=== PATIENT | female | born 1980 | race Caucasian/White ===

== ENCOUNTER 2018-01-31 14:08 | Emergency (ER) | payer MEDICAID ==
--- NOTE | 2018-01-31 16:37 | ED Physician Chart ---
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 Pain, A/N/V/D/C, fever, chills, weakness, dizziness , vertigo, or urinary s/s; LNMP: 01/28/18; pt denies ; pt is eating and is urinating well; pt last urinated one hour CUSTOMER ACCOUNT SPECIALIST Allergies:: Allergies Allergy/AdvReac Type Severity Reaction Status Date / Time No Known Allergies Allergy Verified 01/31/18 15:06 Vitals:: Vital Signs - 8 hr 01/31/18 01/31/18 01/31/18 15:10 15:16 15:31 Temp 97 F 98.5 F 98.5 F HR 87 70 70 RR 16 20 19 BP 150/54 115/78 115/78 O2 Sat % 98 96 96 Historian:: Patient, EMS Review:: Nurse's Note Reviewed, Old Chart Reviewed, EMS run form Reviewed ED Review of Systems - Review of Systems General/Constitutional: No fever, No chills, No weight loss, No weakness, No diaphoresis, No edema, No loss of appetite Skin: No skin lesions, No rash, No bruising Head: No headache, No light-headedness Eyes: No loss of vision, No pain, No diplopia ENT: No earache, No nasal drainage, No sore throat, No tinnitus Neck: No neck pain, No swelling, No thyromegaly, No stiffness, No mass noted Cardio Vascular: No chest pain, Palpitations, No PND, No orthopnea, No edema Pulmonary: SOB, No cough, No sputum, No wheezing GI: No nausea, No vomiting, No diarrhea, No pain, No melena, No hematochezia, No constipation, No hematemesis G/U: No dysuria, No frequency, No hematuria, No nacturia Clamp Carrier Operator: No vaginal discharge, No abnormal vaginal bleed, No contraction Musculoskeletal: No bone or joint pain, No back pain, No muscle pain Endocrine: No polyuria, No polydipsia Psychiatric: Prior psych history, Depression, Anxiety, No suicidal ideation, No homicidal ideation, No auditory hallucination, No visual hallucination Hematopoietic: No bruising, No lymphadenopathy Allergic/Immuno: No urticaria, No angioedema Neurological: No syncope, No focal symptoms, No weakness, Paresthesia, No headache, No seizure, No dizziness, No confusion, No vertigo ED Past Medical History - Past Medical History Obtainable: Yes Past Medical History: No significant medical hx Family History: HTN Social History: Non Smoker, No Alcohol, No Drug Use, Single Surgical History: None Psychiatricy History: Depression Medication: Reviewed Family Medical History - Family Member Mother History Unknown: Yes ED Physical Exam - Physical Examination General/Constitutional: Awake, Well-developed, well-nourished, Alert, No distress, GCS 15, Non-toxic appearing, Ambulatory Head: Atraumatic Eyes: Lids, conjuctiva normal, PERRL, EOMI Skin: Nl inspection, No rash, No skin lesions, No ecchymosis, Well hydrated, No lymphadenopathy ENMT: External ears, nose nl, TM canals nl, Nasal exam nl, Lips, teeth, gums nl , Oropharynx nl, Tonsils nl Neck: Nontender, Full ROM w/o pain, No JVD, No nuchal rigidity, No bruit, No mass, No stridor Other Neck comments:: supple; no meningeal signs; no cervical tenderness; no bruits Respiratory: Nl effort/Exclusion, Clear to Auscultation, No Wheeze/Rhonchi/Rales Cardio Vascular: RRR, No murmur, gallop, rubs, NL S1 S2, Carotid/Femoral/Distal pulses equal bilaterally GI: No tenderness/rebounding/guarding, No organomegaly, No hernia, Normal BS's, Nondistended, No mass/bruits, No McBurney tenderness, Rectum exam nl Other GI comments:: no pulsatile masses : No CVA tenderness Extremities: No tenderness or effusion, Full ROM, normal strength in all extremities, No edema, Normal digits & nails Neuro/Psych: Alert/oriented, DTR's symmetric, Normal sensory exam, Normal motor strength, Judgement/insight normal, Mood normal, Normal gait, No focal deficits Other Neuro/Psych comments:: no focal signs; MSE: WNL; no SIs; Mood/Affect: Stable Misc: Normal back, No paraspinal tenderness ED Labs/Radiology/EKG Results - Lab Results Comments:: deferred by pt - EKG Interpretations Comments:: deferred by pt ED Septic Shock - . Is Septic Shock (SBP<90, OR Lactate>4 mmol\L) present?: No - <6hrs of presentation: Vital Signs: Vital Signs - 8 hr 01/31/18 01/31/18 01/31/18 15:10 15:16 15:31 Temp 97 F 98.5 F 98.5 F HR 87 70 70 RR 16 20 19 BP 150/54 115/78 115/78 O2 Sat % 98 96 96 ED Reassessment (Disposition) - Reassessment Reassessment:: pt tolerated po fluids well in ER; pt is asymptomatic upon discharge Reassessment Condition:: Improved - Diagnosis Diagnosis:: Dx: Hyperventilation Syndrome; Palpitations; Dyspnea; Anxiousness; Paresthesias ; Anxiety Reaction; Depression - Aftercare/Follow up Instructions Aftercare/Follow-Up Instructions:: Counseled pt regarding lab results/diagnosis & need follow up, Refer to Discharge Instructions, Counseled pt & family regarding lab results/diagnosis & need follow up - Patient Disposition Discharge/Transfer:: Home Condition at Disposition:: Stable, Improved (RTER prn if existing s/s reoccur and/or get worse and/or any other new s/s occur; ACIs given for all above Dx; Refer to Front Tender/Bread Oven Operator/Psychiatrist/Bag Valver MARIA ISABEL; F/U with PMD Today or prn; RTER prn if concerned)
== END 2018-01-31 15:51 | disposition home or self-care (01) ==
LOC: ER 14:08
DX: F41.1 Generalized anxiety disorder (principal); F32.9 Major depressive disorder, single episode, unspecified; F45.8 Other somatoform disorders; R00.2 Palpitations; R06.00 Dyspnea, unspecified
CPT/HCPCS: Z7502

== ENCOUNTER 2018-02-06 19:02 | Emergency (ER) | payer MEDICAID ==
[2018-02-06 20:06] LABS: % BASOPHILS 2.4 % (0.0-2.0); % EOSINOPHILS 0.9 % (0.0-5.0); % LYMPHOCYTES 24.2 % (20.0-50.0); % MONOCYTES 4.3 % (2.0-10.0); % NEUTROPHILS 68.2 % (40.0-80.0); BASOPHILE ABSOLUTE 0.3 Th/cumm (0-0.2); EOSINOPHILE ABSOLUTE 0.1 Th/cmm (0.1-0.4); HEMATOCRIT 40.3 % (41.0-60); HEMOGLOBIN 13.5 gm/dL (12-16); LYMPHOCYTE ABSOLUTE 2.6 Th/cmm (1.5-3.0); MEAN CELL VOLUME 88.4 fl (81-100); MEAN CORPUSCULAR HEMOGLOBIN 29.7 pg (27.0-31.0); MEAN CORPUSCULAR HGB CONC 33.6 pg (28.0-36.0); MEAN PLATELET VOLUME 8.3 fl; MONOCYTE ABSOLUTE 0.5 Th/cmm (0.3-1.0); NEUTROPHILE ABSOLUTE 7.2 Th/cmm (1.8-8.0); PLATELET COUNT 298 Th/cmm (150-400); RED BLOOD COUNT 4.56 Mil/cmm (3.80-5.10); WHITE BLOOD COUNT 10.7 Th/cmm (4.8-10.8)
[2018-02-06 20:23] LABS: URINE SOURCE RANDOM
[2018-02-06 20:25] LABS: ALB/GLOB RATIO 1.7 (1.0-1.8); ALBUMIN 4.4 gm/dL (3.7-5.3); ALKALINE PHOSPHATASE 55 U/L (34-104); ANION GAP 12.8 (7.0-16.0); BUN - UREA NITROGEN 12 mg/dL (7-25); CALCIUM SERUM 9.4 mg/dL (8.6-10.3); CARBON DIOXIDE 21.8 mEq/L (21.0-31.0); CHLORIDE 104 mEq/L (98-107); CREATININE - SERUM 0.8 mg/dL (0.6-1.2); GFR AFRICAN-AMERICAN > 60.0 ml/min (>90); GFR NON AFRICAN-AMERICAN > 60.0 ml/min; GLUCOSE 88 mg/dL (70-105); POTASSIUM SERUM 3.6 mEq/L (3.5-5.1); SGOT 20 U/L (13-39); SGPT/ALT 19 U/L (7-52); SODIUM SERUM 135 mEq/L (136-145)
[2018-02-06 20:27] LABS: BILIRUBIN,TOTAL 0.1 mg/dL (0.3-1.0)
--- NOTE | 2018-02-06 20:28 | ED Physician Chart ---
ED Chief Complaint/HPI - Patient Information Date Seen:: 02/06/18 Time Seen:: 20:17 Chief Complaint:: Panic attack History of Present Illness:: 37 yo female with history of anxiety, depression and bipolar disorder treated with escitalopram 20mg qhs and lamotrigine 25mg qd for 6 months, had first panic attack 6 days ago and came to [facility]. After symptoms subsided, patient was discharged home. Patient has been going to [facility] for therapy since 6 months ago and she was started on brexpiprazole 1mg qd which has not been helpful. Today, patient had multiple episodes of panic attack at [facility]. She was then discharged home. She then experienced dizziness, nausea, chest pain, hearing noise and palpitation. Patient was taken to ER by ambulance. Patient denied current suicidal ideation or attempt. Allergies:: Allergies Allergy/AdvReac Type Severity Reaction Status Date / Time No Known Allergies Allergy Verified 02/06/18 19:14 Vitals:: Vital Signs - 8 hr 02/06/18 19:05 Temp 98.2 F HR 76 RR 18 BP 135/90 O2 Sat % 100 ED Review of Systems - Review of Systems General/Constitutional: No fever Skin: No skin lesions Head: No headache Eyes: No pain ENT: No nasal drainage Neck: No neck pain Cardio Vascular: Chest pain, Palpitations Pulmonary: No cough GI: Nausea, No vomiting Musculoskeletal: No bone or joint pain Psychiatric: Depression, Anxiety Neurological: No focal symptoms ED Past Medical History - Past Medical History Social History: Non Smoker, No Alcohol, No Drug Use Psychiatricy History: Depression, Bipolar, Other (Anxiety with panic attacks) Family Medical History - Family Member Mother History Unknown: Yes ED Physical Exam - Physical Examination General/Constitutional: Awake, Alert Head: Atraumatic Eyes: PERRL, EOMI Skin: No skin lesions ENMT: Nasal exam nl Neck: No nuchal rigidity Respiratory: Clear to Auscultation, No Wheeze/Rhonchi/Rales Cardio Vascular: RRR, No murmur, gallop, rubs, NL S1 S2 GI: No tenderness/rebounding/guarding Extremities: normal strength in all extremities Neuro/Psych: Alert/oriented ED Labs/Radiology/EKG Results - Lab Results Results: Laboratory Tests 02/06/18 19:59 WBC 10.7 RBC 4.56 Hgb 13.5 Hct 40.3 L MCV 88.4 MCH 29.7 MCHC Differential 33.6 RDW 13.0 Plt Count 298 MPV 8.3 Neutrophils % 68.2 Lymphocytes % 24.2 Monocytes % 4.3 Eosinophils % 0.9 Basophils % 2.4 H Laboratory Last Values WBC 10.7 Th/cmm (4.8-10.8) 02/06/18 19:59 RBC 4.56 Mil/cmm (3.80-5.10) 02/06/18 19:59 Hgb 13.5 gm/dL (12-16) 02/06/18 19:59 Hct 40.3 % (41.0-60) L 02/06/18 19:59 MCV 88.4 fl (81-100) 02/06/18 19:59 MCH 29.7 pg (27.0-31.0) 02/06/18 19:59 MCHC Differential 33.6 pg (28.0-36.0) 02/06/18 19:59 RDW 13.0 % (11.5-20.0) 02/06/18 19:59 Plt Count 298 Th/cmm (150-400) 02/06/18 19:59 MPV 8.3 fl 02/06/18 19:59 Neutrophils % 68.2 % (40.0-80.0) 02/06/18 19:59 Lymphocytes % 24.2 % (20.0-50.0) 02/06/18 19:59 Monocytes % 4.3 % (2.0-10.0) 02/06/18 19:59 Eosinophils % 0.9 % (0.0-5.0) 02/06/18 19:59 Basophils % 2.4 % (0.0-2.0) H 02/06/18 19:59 Sodium 135 mEq/L (136-145) L 02/06/18 19:59 Potassium 3.6 mEq/L (3.5-5.1) 02/06/18 19:59 Chloride 104 mEq/L (98-107) 02/06/18 19:59 Carbon Dioxide 21.8 mEq/L (21.0-31.0) 02/06/18 19:59 Anion Gap 12.8 (7.0-16.0) 02/06/18 19:59 BUN 12 mg/dL (7-25) 02/06/18 19:59 Creatinine 0.8 mg/dL (0.6-1.2) 02/06/18 19:59 Est GFR ( Amer) > 60.0 ml/min (>90) 02/06/18 19:59 Est GFR (Non-Af Amer) > 60.0 ml/min 02/06/18 19:59 BUN/Creatinine Ratio 15.0 02/06/18 19:59 Glucose 88 mg/dL (70-105) 02/06/18 19:59 Calcium 9.4 mg/dL (8.6-10.3) 02/06/18 19:59 Total Bilirubin 0.1 mg/dL (0.3-1.0) L 02/06/18 19:59 AST 20 U/L (13-39) 02/06/18 19:59 ALT 19 U/L (7-52) 02/06/18 19:59 Alkaline Phosphatase 55 U/L (34-104) 02/06/18 19:59 Troponin I < 0.01 ng/mL (0.01-0.05) L 02/06/18 19:59 Total Protein 7.0 gm/dL (6.0-8.3) 02/06/18 19:59 Albumin 4.4 gm/dL (3.7-5.3) 02/06/18 19:59 Globulin 2.6 gm/dL 02/06/18 19:59 Albumin/Globulin Ratio 1.7 (1.0-1.8) 02/06/18 19:59 Urine Source RANDOM 02/06/18 19:35 Urine Color YELLOW 02/06/18 19:35 Urine Clarity CLEAR (CLEAR) 02/06/18 19:35 Urine pH 6.5 (4.6 - 8.0) 02/06/18 19:35 Ur Specific [place] 1.010 (1.005-1.030) 02/06/18 19:35 Urine Protein NEGATIVE mg/dL (NEGATIVE) 02/06/18 19:35 Urine Glucose (UA) NEGATIVE mg/dL (NEGATIVE) 02/06/18 19:35 Urine Ketones TRACE mg/dL (NEGATIVE) 02/06/18 19:35 Urine Blood NEGATIVE (NEGATIVE) 02/06/18 19:35 Urine Nitrate NEGATIVE (NEGATIVE) 02/06/18 19:35 Urine Bilirubin NEGATIVE (NEGATIVE) 02/06/18 19:35 Urine Urobilinogen 0.2 E.U./dL (0.2 - 1.0) 02/06/18 19:35 Ur Leukocyte Esterase SMALL (NEGATIVE) H 02/06/18 19:35 Urine RBC 0-2 /hpf (0-5) 02/06/18 19:35 Urine WBC 2-5 /hpf (0-5) 02/06/18 19:35 Ur Epithelial Cells MODERATE /lpf (FEW) 02/06/18 19:35 Urine Bacteria 1+ /hpf (NONE SEEN) H 02/06/18 19:35 ED Assessment - Assessment General Assessment: Anxiety with panic attacks Urinary tract infection Hyponatremia Mild dehydration Assessment/Comments:: CBC, CMP, UA NS 1L IV bolus Bactrim DS x 1 D/c home Bactrim DS bid x 3 days F/u at [facility] in 1 day, or return to ER if symptoms worsen ED Septic Shock - . Is Septic Shock (SBP<90, OR Lactate>4 mmol\L) present?: No - <6hrs of presentation: Vital Signs: Vital Signs - 8 hr 02/06/18 19:05 Temp 98.2 F HR 76 RR 18 BP 135/90 O2 Sat % 100 ED Reassessment (Disposition) - Reassessment Reassessment Condition:: Improved - Patient Disposition Discharge/Transfer:: Home
[2018-02-06 20:32] LABS: URINE BILIRUBIN NEGATIVE (NEGATIVE); URINE BLOOD NEGATIVE (NEGATIVE); URINE GLUCOSE (UA) NEGATIVE (NEGATIVE); URINE KETONE TRACE mg/dL (NEGATIVE); URINE LEUKOCYTE ESTERASE SMALL (NEGATIVE); URINE NITRATE NEGATIVE (NEGATIVE); URINE PH 6.5 (4.6 - 8.0); URINE PROTEIN NEGATIVE (NEGATIVE); URINE UROBILINOGEN 0.2 E.U./dL (0.2 - 1.0)
[2018-02-06 20:44] LABS: URINE CLARITY CLEAR (CLEAR); URINE COLOR YELLOW; URINE MICROSCOPIC INDICATED? YES
[2018-02-06 20:46] LABS: URINE BACTERIA 1+ /hpf (NONE SEEN); URINE EPITHELIAL CELLS MODERATE /lpf (FEW); URINE RBC 0-2 /hpf (0-5)
[2018-02-06] MEDS ORDERED: Sodium Chloride 0.9% 1,000 ML IV ONE (20:49)
[2018-02-06] MEDS ORDERED: Sulfamethoxazole/TMP 800/160mg Tab PO ONE (20:59)
[2018-02-06] MEDS ORDERED: Sulfamethoxazole/TMP 800/160mg Tab ONE (21:14)
[2018-02-07 12:22] LABS: AMPHETAMINE URINE NEGATIVE (NEGATIVE); BARBITURATES URINE NEGATIVE (NEGATIVE); BENZODIAZEPINES QUAL URINE NEGATIVE (NEGATIVE); CANNABINOID THC NEGATIVE (NEGATIVE); COCAINE METABOLITE QUAL URINE NEGATIVE (NEGATIVE); METHADONE URINE NEGATIVE (NEGATIVE); METHAMPHETAMINES QUAL URINE NEGATIVE (NEGATIVE); OPIATES (MORPHINE) QUAL. URINE NEGATIVE (NEGATIVE); PHENCYCLIDINE (PCP) URINE NEGATIVE (NEGATIVE); TRICYCLICS (TCA) QUAL. URINE NEGATIVE (NEGATIVE)
== END 2018-02-06 22:20 | disposition home or self-care (01) ==
LOC: ER 19:02
DX: F41.0 Panic disorder [episodic paroxysmal anxiety] (principal); N39.0 Urinary tract infection, site not specified; E87.1 Hypo-osmolality and hyponatremia; E86.0 Dehydration; F32.9 Major depressive disorder, single episode, unspecified
CPT/HCPCS: 36415-UA; 80053-TC; 80307; 81001-TC; 84484-TC; 85025-TC; Z7502

== ENCOUNTER 2018-02-11 17:24 | Emergency (ER) | payer MEDICAID ==
--- NOTE | 2018-02-11 17:47 | ED Physician Chart ---
ED Chief Complaint/HPI - Patient Information Date Seen:: 02/11/18 Time Seen:: 17:30 Chief Complaint:: anxiety History of Present Illness:: anxiety in a patient who was here a few days ago and refused an EKG and blood work. I went into the room with nurse Shana. She was on the phone with her brother and ended the phone call with him. She then turned to us and said " What happened?" which I found strange since I had just met her. I said nothing. . .that I came over to interview her and examine her. I asked her if she was still taking Lamotrigine and Lexapro. She answered that she is not taking Lamotrigine any more but that she is on Lexapro. She then said, that she was not going to answer any more of my questions since I had an attitude. Nurse Daphnie went to talk to her after this and the patient stated that she would answer my questions and agree to whatever I thought was indicated for her. 5:37 p.m. All of the following interactions with this patient were with nurse Eller. In fact, the patient apologized to me for the way that she acted. At the end of the visit, the patient thanked me profusely for helping her. Allergies:: Allergies Allergy/AdvReac Type Severity Reaction Status Date / Time No Known Allergies Allergy Verified 02/06/18 19:14 ED Review of Systems - Review of Systems General/Constitutional: No fever, No chills, No weight loss, No weakness, No diaphoresis, No edema, No loss of appetite Skin: No skin lesions, No rash, No bruising Head: No headache, No light-headedness Eyes: No loss of vision, No pain, No diplopia ENT: No earache, No nasal drainage, No sore throat, No tinnitus Neck: No neck pain, No swelling, No thyromegaly, No stiffness, No mass noted Cardio Vascular: Chest pain Pulmonary: No SOB, No cough, No sputum, No wheezing GI: No nausea, No vomiting, No diarrhea, No pain, No melena, No hematochezia, No constipation, No hematemesis G/U: No dysuria, No frequency, No hematuria Musculoskeletal: No bone or joint pain, No back pain, No muscle pain Endocrine: No polyuria, No polydipsia Psychiatric: No prior psych history, No depression, No anxiety, No suicidal ideation Hematopoietic: No bruising, No lymphadenopathy Allergic/Immuno: No urticaria, No angioedema Neurological: No syncope, No focal symptoms, No weakness, No paresthesia, No headache, No seizure, No dizziness, No confusion, No vertigo ED Past Medical History - Past Medical History Obtainable: Yes Past Medical History: No significant medical hx Psychiatricy History: Bipolar, Other (anxiety) Family Medical History - Family Member Mother History Unknown: Yes ED Physical Exam - Physical Examination General/Constitutional: Awake, Well-developed, well-nourished, Alert, GCS 15, Non-toxic appearing, Ambulatory Other Gen/Cons comments:: c/o chest pain after eating overweight Head: Atraumatic Eyes: Lids, conjuctiva normal, PERRL, EOMI Skin: Nl inspection, No rash, No skin lesions, No ecchymosis, Well hydrated, No lymphadenopathy ENMT: External ears, nose nl, Nasal exam nl, Lips, teeth, gums nl Neck: Nontender, Full ROM w/o pain, No JVD, No nuchal rigidity, No bruit, No mass, No stridor Respiratory: Nl effort/Exclusion, Clear to Auscultation, No Wheeze/Rhonchi/Rales Cardio Vascular: RRR, No murmur, gallop, rubs, NL S1 S2 GI: No tenderness/rebounding/guarding, No organomegaly, No hernia, Normal BS's, Nondistended, No mass/bruits, No McBurney tenderness : No CVA tenderness Extremities: No tenderness or effusion, Full ROM, normal strength in all extremities, No edema, Normal digits & nails Neuro/Psych: Alert/oriented, Normal sensory exam, Normal motor strength, Judgement/insight normal, Normal gait, No focal deficits Other Neuro/Psych comments:: anti-social, angry Misc: Normal back, No paraspinal tenderness ED Assessment - Assessment General Assessment: EKG: normal sinus rhythm, no ischemic changes. complete relief of chest pain after Maalox. Patient refused the other 2 components of the GI cocktail. ED Septic Shock - . Is Septic Shock (SBP<90, OR Lactate>4 mmol\\L) present?: No ED Reassessment (Disposition) - Reassessment Reassessment Condition:: Improved - Diagnosis Diagnosis:: Esophageal spasm secondary to GERD, relieved. Bipolar h/o anxiety - Aftercare/Follow up Instructions Notes:: GERD dietary restrictions reviewed with patient. - Patient Disposition Discharge/Transfer:: Home Condition at Disposition:: Stable, Improved
[2018-02-11] MEDS ORDERED: Maalox 30 mL Cup ONE (18:35)
[2018-02-11] MEDS: Maalox 30 mL Cup PO ONE (18:45)
== END 2018-02-11 19:30 | disposition home or self-care (01) ==
LOC: ER 17:24
DX: F31.9 Bipolar disorder, unspecified (principal); K21.9 Gastro-esophageal reflux disease without esophagitis; K22.4 Dyskinesia of esophagus; F41.9 Anxiety disorder, unspecified
CPT/HCPCS: 93005; Z7502